=== PATIENT | female | born 1995 | race Caucasian/White ===

== ENCOUNTER 2020-06-03 13:33 | Outpatient (CLI) | payer BC ==
[2020-06-03 14:48] LABS: APPEARANCE,URINE SLIGHTLY-CLOUDY; BILIRUBIN,URINE NEGATIVE (NEGATIVE); COLOR,URINE YELLOW; GLUCOSE, URINE 50 mg/dL (NEGATIVE); KETONES,URINE NEGATIVE (NEGATIVE); LEUKOCYTE ESTERASE,URINE NEGATIVE (NEGATIVE); NITRITE,URINE NEGATIVE (NEGATIVE); PROTEIN,URINE 100 mg/dL (NEGATIVE); URINE SPECIFIC GRAVITY 1.021; UROBILINOGEN,URINE NEGATIVE mg/dL (<2.0)
[2020-06-03 15:05] LABS: URINE AMPHETAMINES SCREEN NEGATIVE; URINE BARBITURATES SCREEN NEGATIVE; URINE BENZODIAZEPINES SCREEN NEGATIVE; URINE COCAINE SCREEN NEGATIVE; URINE MARIJUANA (THC) SCREEN NEGATIVE; URINE METHADONE SCREEN NEGATIVE; URINE PHENCYCLIDINE SCREEN NEGATIVE
[2020-06-03 15:07] LABS: ABSOLUTE EOSINOPHILS # (AUTO) 0.1 10^3/uL (0.0-0.6); ABSOLUTE LYMPHOCYTES (AUTO) 1.5 10^3/uL (0.5-4.7); ABSOLUTE MONOCYTES (AUTO) 0.9 10^3/uL (0.1-1.4); ABSOLUTE NEUT (AUTO) 8.7 10^3/uL (1.7-8.2); BASOPHILS % (AUTO) 0.2 % (0-2); EOSINOPHILS % (AUTO) 0.6 % (0-6); HEMATOCRIT 35.9 % (36.0-47.0); HEMOGLOBIN 12.4 g/dL (12.0-15.5); LYMPHOCYTES % (AUTO) 13.6 % (13-45); MEAN CORPUSCULAR HEMOGLOBIN 29.9 pg (27.0-33.4); MEAN CORPUSCULAR HGB CONC 34.5 g/dL (32.0-36.0); MEAN CORPUSCULAR VOLUME 87 fl (80-97); PLATELET COUNT 135 10^3/uL (150-450); RED BLOOD COUNT 4.15 10^6/uL (3.72-5.28); RED CELL DISTRIBUTION WIDTH 13.7 % (11.5-14.0); SEGMENTED NEUTROPHILS % (AUTO) 77.6 % (42-78); TOTAL CELLS COUNTED % (AUTO) 100 %; WHITE BLOOD COUNT 11.2 10^3/uL (4.0-10.5)
[2020-06-03 15:16] LABS: UR PRO/CREAT RATIO RESULT 0.2 mg/mg (0.0-0.2); URINE CREATININE 129.2 mg/dL (16-327); URINE PROTEIN 22.6 mg/dL (<12)
[2020-06-03 15:29] LABS: ALBUMIN 3.1 g/dL (3.5-5.0); ALKALINE PHOSPHATASE 74 U/L (38-126); ASPARTATE AMINO TRANSFERASE 16 U/L (14-36); BILIRUBIN,TOTAL 0.2 mg/dL (0.2-1.3); BLOOD UREA NITROGEN 11 mg/dL (7-20); CALCIUM 9.1 mg/dL (8.4-10.2); CARBON DIOXIDE 22 mmol/L (22-30); CHLORIDE 107 mmol/L (98-107); GLUCOSE 90 mg/dL (75-110); POTASSIUM 3.9 mmol/L (3.6-5.0); TOTAL PROTEIN 5.9 g/dL (6.3-8.2); URIC ACID 3.7 mg/dL (2.5-6.2)
--- NOTE | 2020-06-03 16:11 | Non Stress Test Report ---
Non Stress Test Datetime Report Generated by CPN: 06/03/2020 16:11 INDICATION Indication for Study (NST) Other: high blood pressure VITAL SIGNS Temperature - NST: 98.4 Pulse - NST: 103 RESP - NST: 16 NBPSYS NST: 123 NBPDIA NST: 59 MONITORING Monitor Explained: Monitor Explained; Patient Verbalized Understanding Time on Monitor: 06/03/2020 13:55 Time off Monitor: 06/03/2020 15:55 NST Duration: 120 NST INTERVENTIONS NST Interventions: None Physician Notified NST: Denisa Da Silva, CNM BABY A: [id number] BABY A Movement : Present Contraction Frequency : none FHR Baseline : 145 Accelerations : 15X15 Decelerations : None Variability : Moderate 6-25bpm NST Review: Meets Criteria for Reactive NST NST Review and Verified By : R Clifford RN NST Results: Reactive NST REPORT Report Trigger: Send Report
[2020-06-03 16:34] LABS: ANION GAP 4 (5-19)
== END 2020-06-03 16:00 | disposition home or self-care (01) ==
LOC: LC 13:33
PROVIDERS: ATTEND Obstetrics & Gynecology
DX: O16.3 Unspecified maternal hypertension, third trimester (principal); Z3A.34 34 weeks gestation of pregnancy; Z02.83 Encounter for blood-alcohol and blood-drug test
CPT/HCPCS: 36415; 80053; 80307; 81001; 82570; 83615; 84156; 84550; 85025

== ENCOUNTER 2020-06-11 09:42 | Outpatient (CLI) | payer BC ==
[2020-06-11 10:43] LABS: APPEARANCE,URINE CLOUDY; BILIRUBIN,URINE NEGATIVE (NEGATIVE); GLUCOSE, URINE NEGATIVE (NEGATIVE); KETONES,URINE NEGATIVE (NEGATIVE); LEUKOCYTE ESTERASE,URINE SMALL (NEGATIVE); NITRITE,URINE NEGATIVE (NEGATIVE); PROTEIN,URINE 100 mg/dL (NEGATIVE); URINE SPECIFIC GRAVITY 1.025; UROBILINOGEN,URINE NEGATIVE mg/dL (<2.0)
[2020-06-11 10:44] LABS: ABSOLUTE EOSINOPHILS # (AUTO) 0.1 10^3/uL (0.0-0.6); ABSOLUTE LYMPHOCYTES (AUTO) 1.3 10^3/uL (0.5-4.7); ABSOLUTE MONOCYTES (AUTO) 0.8 10^3/uL (0.1-1.4); ABSOLUTE NEUT (AUTO) 8.9 10^3/uL (1.7-8.2); EOSINOPHILS % (AUTO) 0.7 % (0-6); HEMATOCRIT 37.9 % (36.0-47.0); HEMOGLOBIN 12.9 g/dL (12.0-15.5); LYMPHOCYTES % (AUTO) 11.7 % (13-45); MEAN CORPUSCULAR HEMOGLOBIN 29.6 pg (27.0-33.4); MEAN CORPUSCULAR HGB CONC 34.1 g/dL (32.0-36.0); MEAN CORPUSCULAR VOLUME 87 fl (80-97); MONOCYTES % (AUTO) 7.3 % (3-13); PLATELET COUNT 117 10^3/uL (150-450); RED BLOOD COUNT 4.36 10^6/uL (3.72-5.28); RED CELL DISTRIBUTION WIDTH 13.6 % (11.5-14.0); SEGMENTED NEUTROPHILS % (AUTO) 80.3 % (42-78); TOTAL CELLS COUNTED % (AUTO) 100 %; WHITE BLOOD COUNT 11.1 10^3/uL (4.0-10.5)
[2020-06-11 10:52] LABS: COLOR,URINE YELLOW
[2020-06-11 11:08] LABS: URINE AMPHETAMINES SCREEN NEGATIVE; URINE BARBITURATES SCREEN NEGATIVE; URINE BENZODIAZEPINES SCREEN NEGATIVE; URINE COCAINE SCREEN NEGATIVE; URINE MARIJUANA (THC) SCREEN NEGATIVE; URINE METHADONE SCREEN NEGATIVE; URINE PHENCYCLIDINE SCREEN NEGATIVE
[2020-06-11 11:10] LABS: ALKALINE PHOSPHATASE 77 U/L (38-126); ANION GAP 6 (5-19); ASPARTATE AMINO TRANSFERASE 19 U/L (14-36); BILIRUBIN,TOTAL 0.3 mg/dL (0.2-1.3); BLOOD UREA NITROGEN 15 mg/dL (7-20); CALCIUM 9.6 mg/dL (8.4-10.2); CARBON DIOXIDE 20 mmol/L (22-30); CHLORIDE 105 mmol/L (98-107); GLUCOSE 102 mg/dL (75-110); POTASSIUM 4.3 mmol/L (3.6-5.0); TOTAL PROTEIN 5.8 g/dL (6.3-8.2); URIC ACID 5.1 mg/dL (2.5-6.2)
[2020-06-11 12:22] LABS: UR PRO/CREAT RATIO RESULT 0.1 mg/mg (0.0-0.2); URINE CREATININE 259.9 mg/dL (16-327); URINE PROTEIN 38.1 mg/dL (<12)
--- NOTE | 2020-06-11 12:41 | Non Stress Test Report ---
Non Stress Test Datetime Report Generated by CPN: 06/11/2020 12:40 DEMOGRAPHIC Test Number: 1 EGA NST: 35.2 INDICATION Indication for Study (NST) Other: pre e w/u VITAL SIGNS Temperature - NST: 98.1 Pulse - NST: 83 RESP - NST: 18 NBPSYS NST: 132 NBPDIA NST: 80 MONITORING Monitor Explained: Monitor Explained; Test Explained; Patient Verbalized Understanding Time on Monitor: 06/11/2020 09:55 Time off Monitor: 06/11/2020 10:15 NST Duration: 20 NST INTERVENTIONS NST Interventions: PO Hydration; Reposition Patient Physician Notified NST: cvalencia,cnm BABY A: [id number] BABY A Movement : Present Contraction Frequency : irregular FHR Baseline : 150 Accelerations : 15X15 Decelerations : None Variability : Moderate 6-25bpm NST Review: Meets Criteria for Reactive NST NST Review and Verified By : ROSIBEL Balbuena Results: Reactive NST REPORT Report Trigger: Send Report
== END 2020-06-11 12:42 | disposition home or self-care (01) ==
LOC: LC 09:42
PROVIDERS: ATTEND Obstetrics & Gynecology
DX: Z02.83 Encounter for blood-alcohol and blood-drug test (principal); O16.3 Unspecified maternal hypertension, third trimester; Z3A.35 35 weeks gestation of pregnancy
CPT/HCPCS: 36415; 59025; 80053; 80307; 81001; 82570; 83615; 84156; 84550; 85025

== ENCOUNTER 2020-06-12 13:58 | Inpatient (IN) | payer BC ==
[2020-06-12] MEDS ORDERED: NIFEDIPINE 10 MG CAPSULE SL ONE (14:22)
[2020-06-12] MEDS ORDERED: RINGERS SOLUTION,LACTATED 1,000 ML IV ONE (14:22)
[2020-06-12] MEDS ORDERED: NIFEDIPINE 10 MG CAPSULE ONE (14:24)
[2020-06-12 14:39] LABS: ABSOLUTE EOSINOPHILS # (AUTO) 0.1 10^3/uL (0.0-0.6); ABSOLUTE LYMPHOCYTES (AUTO) 1.5 10^3/uL (0.5-4.7); ABSOLUTE MONOCYTES (AUTO) 0.9 10^3/uL (0.1-1.4); ABSOLUTE NEUT (AUTO) 9.8 10^3/uL (1.7-8.2); BASOPHILS % (AUTO) 0.1 % (0-2); EOSINOPHILS % (AUTO) 0.5 % (0-6); HEMOGLOBIN 13.1 g/dL (12.0-15.5); LYMPHOCYTES % (AUTO) 12.3 % (13-45); MEAN CORPUSCULAR HEMOGLOBIN 29.4 pg (27.0-33.4); MEAN CORPUSCULAR HGB CONC 33.7 g/dL (32.0-36.0); MEAN CORPUSCULAR VOLUME 87 fl (80-97); MONOCYTES % (AUTO) 7.3 % (3-13); PLATELET COUNT 138 10^3/uL (150-450); RED BLOOD COUNT 4.47 10^6/uL (3.72-5.28); RED CELL DISTRIBUTION WIDTH 13.7 % (11.5-14.0); SEGMENTED NEUTROPHILS % (AUTO) 79.8 % (42-78); TOTAL CELLS COUNTED % (AUTO) 100 %; WHITE BLOOD COUNT 12.2 10^3/uL (4.0-10.5)
[2020-06-12] MEDS ORDERED: BETAMET ACET/BETAMET NA INJ 6 MG/1 ML IM ONE (14:45)
[2020-06-12] MEDS ORDERED: ACETAMINOPHEN 1,000 MG/100 ML RTUPB IV ONE (14:46)
[2020-06-12 14:54] LABS: ALBUMIN 3.2 g/dL (3.5-5.0); ALKALINE PHOSPHATASE 86 U/L (38-126); ANION GAP 6 (5-19); ASPARTATE AMINO TRANSFERASE 18 U/L (14-36); BILIRUBIN,TOTAL 0.2 mg/dL (0.2-1.3); BLOOD UREA NITROGEN 15 mg/dL (7-20); CALCIUM 9.6 mg/dL (8.4-10.2); CARBON DIOXIDE 18 mmol/L (22-30); CHLORIDE 107 mmol/L (98-107); GLUCOSE 81 mg/dL (75-110); POTASSIUM 4.6 mmol/L (3.6-5.0); URIC ACID 4.6 mg/dL (2.5-6.2)
[2020-06-12] MEDS ORDERED: ACETAMINOPHEN 1,000 MG/100 ML RTUPB IV SCH (15:00)
[2020-06-12 15:04] LABS: URINE AMPHETAMINES SCREEN NEGATIVE; URINE BARBITURATES SCREEN NEGATIVE; URINE BENZODIAZEPINES SCREEN NEGATIVE; URINE COCAINE SCREEN NEGATIVE; URINE MARIJUANA (THC) SCREEN NEGATIVE; URINE METHADONE SCREEN NEGATIVE; URINE PHENCYCLIDINE SCREEN NEGATIVE
[2020-06-12] MEDS ORDERED: BETAMET ACET/BETAMET NA INJ 6 MG/1 ML ONE (15:12)
[2020-06-12 16:45] LABS: UR PRO/CREAT RATIO RESULT 1.3 mg/mg (0.0-0.2); URINE CREATININE 97.4 mg/dL (16-327); URINE PROTEIN 123.6 mg/dL (<12)
--- NOTE | 2020-06-12 17:23 | Admission Physical ---
Datetime Report Generated by CPN: 06/12/2020 17:22 CURRENT ADMISSION Chief Complaint: Signs/Symptoms Gestational HTN Indication for Induction: Other Indication for Induction- Other: preeclampsia Admit Impression : Induction of Labor Admit Plan: Admit to Unit ALLERGIES Medication Allergies: No Medication Allergies: No Known Allergies (06/12/2020) Latex: No Latex Allergies Food Allergies: none Environmental Allergies: none OBSTETRICAL HISTORY EDC: 07/14/2020 00:00 : 1 Para: 0 Term: 0 : 0 SAB: 0 IAB: 0 Livin PHYSICAL EXAM General: Normal HEENT: Normal Neurologic: Normal Thyroid: Normal Heart: Normal Lungs: Normal Breast: Deferred Back: Normal Abdomen: Normal Genitourinary Exam: Normal Extremities: Normal DTRs: Normal Pelvic Type: Adequate Vital Signs: Reviewed MEMBRANES Pooling: Negative Membranes: Intact FETUS A EGA: 35.3 FHR- Baseline: 140 Variability: Moderate 6-25bpm Decelerations: None FHR Category: Category I Admit Comment: Discussed with Dr Melgar. Plan steroids and induction for preeclampsia. INFORMED CONSENT Signature: with User ID: [email or web address]
[2020-06-12] MEDS ORDERED: OXYTOCIN/0.9 % SODIUM CHLORIDE 30 UNIT/500 ML RTUINJ IV PRN (17:35)
[2020-06-12] MEDS ORDERED: MAG HYDROX/AL HYDROX/SIMETH SUSP 30 ML UDCUP PO PRN ×2 (17:35→18:10)
[2020-06-12] MEDS ORDERED: DINOPROSTONE 10 MG VAGINAL INSERT.SR PV ONE ×2 (17:35→18:10)
[2020-06-12] MEDS ORDERED: ACETAMINOPHEN 325 MG TABLET PO PRN ×2 (17:35→18:10)
[2020-06-12] MEDS ORDERED: ZOLPIDEM TARTRATE 5 MG TABLET PO PRN ×2 (17:35→18:10)
[2020-06-12] MEDS ORDERED: RINGERS SOLUTION,LACTATED 300 ML IV ONE ×2 (17:35→18:10)
[2020-06-12] MEDS ORDERED: RINGERS SOLUTION,LACTATED 1,000 ML IV PRN (18:10)
[2020-06-12] MEDS ORDERED: DINOPROSTONE 10 MG VAGINAL INSERT.SR ONE (18:23)
[2020-06-12 20:26] LABS: CHLAM PCR NOT DETECTED (NOT DETECT)
[2020-06-12] MEDS: RINGERS SOLUTION,LACTATED 1,000 ML IV PRN (22:40)
[2020-06-13] MEDS ORDERED: OXYTOCIN 10 UNIT/ML VIAL ONE (08:18)
[2020-06-13] MEDS ORDERED: LIDOCAINE 1% INJ-PF (10 MG/ML) 30 ML SDV ONE (08:19)
[2020-06-13] MEDS ORDERED: MISOPROSTOL 0.2 MG TABLET ONE (08:19)
[2020-06-13] MEDS ORDERED: OXYTOCIN/0.9 % SODIUM CHLORIDE 30 UNIT/500 ML RTUINJ ONE (08:19)
[2020-06-13 09:25] LABS: ABSOLUTE LYMPHOCYTES (AUTO) 1.6 10^3/uL (0.5-4.7); ABSOLUTE MONOCYTES (AUTO) 0.8 10^3/uL (0.1-1.4); ABSOLUTE NEUT (AUTO) 13.1 10^3/uL (1.7-8.2); BASOPHILS % (AUTO) 0.2 % (0-2); HEMATOCRIT 37.4 % (36.0-47.0); HEMOGLOBIN 12.7 g/dL (12.0-15.5); LYMPHOCYTES % (AUTO) 10.4 % (13-45); MEAN CORPUSCULAR HEMOGLOBIN 29.7 pg (27.0-33.4); MEAN CORPUSCULAR VOLUME 87 fl (80-97); MONOCYTES % (AUTO) 5.1 % (3-13); PLATELET COUNT 140 10^3/uL (150-450); RED BLOOD COUNT 4.29 10^6/uL (3.72-5.28); RED CELL DISTRIBUTION WIDTH 13.8 % (11.5-14.0); SEGMENTED NEUTROPHILS % (AUTO) 84.3 % (42-78); TOTAL CELLS COUNTED % (AUTO) 100 %; WHITE BLOOD COUNT 15.5 10^3/uL (4.0-10.5)
[2020-06-13] MEDS ORDERED: PENICILLIN G POTASSIUM 5,000,000 UNIT in DEXTROSE 5%-WATER 100 ML IV ONE (09:34)
[2020-06-13] MEDS ORDERED: PENICILLIN G-K 5 MILLION UNIT VIAL ONE (09:42)
--- NOTE | 2020-06-13 09:42 | L&D Progress Notes ---
PROGRESS NOTES Datetime Report Generated by CPN: 06/13/2020 09:42 PROGRESS NOTE Impression: Normal Progression of Labor Procedures: Sterile Vag Exam Plan: Continue Present Management; Induction Informed Consent Obtained: Vaginal Delivery; Induction of Labor; Risks, Benefits and Alternatives Discussed Comment: s/p cervidil. 2/50/hi. PCN started for GBS unknown. Pitocin started and cooks catheter placed. LAST VAGINAL EXAM-NURSING Nursing Exam Dilitation: 2.0 Nursing Exam Effacement: 50 Nursing Exam Station: high Nursing Exam Contractions: irritability noted MEMBRANES Pooling: Negative Membranes: Intact FETUS A : 35.0 SIGNATURE SIGNATURE: [id number];[id number];[id number] Signature: with User ID: [email or web address]
[2020-06-13] MEDS: RINGERS SOLUTION,LACTATED 1,000 ML IV PRN (09:52)
[2020-06-13] MEDS ORDERED: PENICILLIN G POTASSIUM 2,500,000 UNIT in DEXTROSE 5%-WATER 50 ML IV SCH ×2 (13:35→17:35)
[2020-06-13] MEDS ORDERED: BETAMET ACET/BETAMET NA INJ 6 MG/1 ML IM ONE (14:24)
[2020-06-13] MEDS ORDERED: BETAMET ACET/BETAMET NA INJ 6 MG/1 ML ONE (14:40)
[2020-06-13] MEDS ORDERED: EPHEDRINE SULFATE INJ 50 MG/1 ML AMPULE ONE (15:14)
[2020-06-13] MEDS ORDERED: FENTANYL/BUPIVACAINE/NS/PF 300 MCG/150 ML RTUINJ EPI ONE (15:15)
[2020-06-13] MEDS ORDERED: ROPIVACAINE HCL 0.2% INJ/PF (2 MG/ML) 20 ML SDV ONE (15:15)
[2020-06-13] MEDS ORDERED: GLYCERIN/WITCH HAZEL LEAF 1 EACH MED..WIPE TP PRN (17:44)
[2020-06-13] MEDS ORDERED: PROMETHAZINE HCL 25 MG TABLET PO PRN (17:44)
[2020-06-13] MEDS ORDERED: BENZOCAINE/MENTHOL AEROSOL SPRAY 56 ML TOP PRN (17:44)
[2020-06-13] MEDS ORDERED: PROMETHAZINE HCL 25 MG SUPP.RECT PR PRN (17:44)
[2020-06-13] MEDS ORDERED: PSEUDOEPHEDRINE HCL 30 MG TABLET PO PRN (17:44)
[2020-06-13] MEDS ORDERED: DIPH/PERTUSS(ACELL)/TETANUS VAC/PF 0.5 ML SYR (>=10YO) IM PRN (17:44)
[2020-06-13] MEDS ORDERED: DIPHENHYDRAMINE HCL 25 MG CAPSULE PO PRN (17:44)
[2020-06-13] MEDS ORDERED: NA PHOS,M-B/NA PHOS,DI-BA (ADULT) 133 ML ENEMA PR PRN (17:44)
[2020-06-13] MEDS ORDERED: ZOLPIDEM TARTRATE 5 MG TABLET PO PRN (17:44)
[2020-06-13] MEDS ORDERED: OXYTOCIN/0.9 % SODIUM CHLORIDE 30 UNIT/500 ML RTUINJ IV PRN (17:44)
[2020-06-13] MEDS ORDERED: PROMETHAZINE HCL INJ 25 MG/1 ML VIAL IV PRN (17:44)
[2020-06-13] MEDS ORDERED: MEASLES,MUMPS&RUBELLA VACC/PF 0.5 ML VIAL SUBCUT PRN (17:44)
[2020-06-13] MEDS ORDERED: ACETAMINOPHEN 650 MG SUPP.RECT PR PRN (17:44)
[2020-06-13] MEDS ORDERED: MAGNESIUM HYDROXIDE SUSP 30 ML UDCUP PO PRN (17:44)
[2020-06-13] MEDS ORDERED: ACETAMINOPHEN WITH CODEINE #3 TABLET PO PRN ×2 (17:44)
[2020-06-13] MEDS ORDERED: DIBUCAINE 1% OINTMENT 28 GM TP PRN (17:44)
[2020-06-13] MEDS ORDERED: DOCUSATE SODIUM 100 MG CAPSULE PO SCH (18:00)
[2020-06-13] MEDS ORDERED: FERROUS SULFATE 325 MG TABLET PO SCH (18:00)
[2020-06-13] MEDS ORDERED: MAGNESIUM SULFATE 4 GM/100 ML RTUPB IV ONE ×2 (19:00→19:09)
[2020-06-13] MEDS ORDERED: MISOPROSTOL 0.2 MG TABLET PR ONE (19:00)
[2020-06-13] MEDS ORDERED: MAGNESIUM SULFATE 20 GM/500 ML RTUINJ IV ONE (19:09)
[2020-06-13] MEDS: MAGNESIUM SULFATE 20 GM/500 ML RTUINJ IV PRN (20:31)
[2020-06-13] MEDS ORDERED: ACETAMINOPHEN 325 MG TABLET ONE (21:18)
[2020-06-13] MEDS: PIPERACILLIN SODIUM/TAZOBACTAM 3.375 GM in NORMAL SALINE 100 ML IV SCH (21:29)
[2020-06-13] MEDS ORDERED: ACETAMINOPHEN 325 MG TABLET PO ONE (21:47)
[2020-06-13] MEDS ORDERED: IBUPROFEN 800 MG TABLET ONE (22:02)
[2020-06-13] MEDS ORDERED: FAMOTIDINE 20 MG TABLET ONE (22:02)
[2020-06-13] MEDS: IBUPROFEN 800 MG TABLET PO SCH (22:14)
[2020-06-13] MEDS: FAMOTIDINE 20 MG TABLET PO SCH (22:14)
[2020-06-14] MEDS ORDERED: PIPERACILLIN SODIUM/TAZOBACTAM 3.375 GM in NORMAL SALINE 100 ML IV SCH ×2
[2020-06-14] MEDS ORDERED: PIPERACILLIN/TAZOBACTAM 3.375 GM VIAL IV SCH
[2020-06-14] MEDS: PIPERACILLIN SODIUM/TAZOBACTAM 3.375 GM in NORMAL SALINE 100 ML IV SCH ×4 (03:42→21:10)
--- NOTE | 2020-06-14 04:42 | Delivery Summary ---
Del Sum A-C Datetime Report Generated by CPN: 06/14/2020 04:41 DELIVERY PERSONNEL DELIVERY PERSONNEL: [id number] Delivery Doctor:: Alexandra Melgar MD Labor and Delivery Nurse:: GENIE Griffith Nursery Nurse:: Faina Snyder RN Group Controller/PATHOLOGY TECH: Jessa Quinteros, ST MATERNAL INFORMATION Delivery Anesthesia: Epidural Provider Comments: VMI delivered in REBECCA presentation with left compound arm/elbow. Shoulders and body delivered without difficulty. Cord doubly clamped and cut and to maternal abdomen for NRP then to Nursery. Placenta delivered intact spontaneously. FF at U. 2nd degree perineal laceration and left vaginal sidewall laceration repaired. 1000mcg cytotec given NM. good hemostasis. Mother and baby stable upon provider leaving the room. LABOR SUMMARY EDC: 07/14/2020 00:00 No. Babies in Womb: 1 Labor Anesthesia: Epidural LABOR INFORMATION Onset of Labor: 06/13/2020 14:30 Complete Dilatation: 06/13/2020 17:16 Cervical Ripening Agents: Cervidil Other Ripening Agents: cervidil Oxytocin: Induction Group B Beta Strep: unknown Antibiotics # of Doses: 2 Antibiotics Time of Last Dose: 1345 Name of Antibiotic Given: PCN Steroids Given: Full Course; < 24 Hours before Delivery MEMBRANES Membranes Rupture Method: Artificial Rupture of Membranes: 06/13/2020 14:55 Length of Rupture (hr): 2.70 Amniotic Fluid Color: Clear Amniotic Fluid Amount: Large Amniotic Fluid Odor: Normal STAGES OF LABOR Stage 1 hr: 2 Stage 1 min: 46 Stage 2 hr: 0 Stage 2 min: 21 Stage 3 hr: 0 Stage 3 min: 6 Total Time in Labor hr: 3 Total Time in Labor min: 13 VAGINAL DELIVERY Episiotomy: None Laceration #1: Vaginal Laceration Extension #1: Second Degree Laceration #2: Vaginal Laceration Extension #2: N/A Laceration Repair: Yes Sponge Count Correct: Yes Sharps Count Correct: Yes BABY A INFORMATION Infant Delivery Date/Time: 06/13/2020 17:37 Method of Delivery: Vaginal Nurse Controlled Delivery: No Born in Route : No : N/A Forceps: N/A Vacuum Extraction: N/A Shoulder Dystocia : No PRESENTATION/POSITION BABY A Presentation: Cephalic Cephalic Presentation: Vertex Vertex Position: Left Occipital Anterior Breech Presentation: N/A PLACENTA INFORMATION BABY A Placenta Delivery Time : 06/13/2020 17:43 Placenta Method of Delivery: Spontaneous SCORES BABY A Heart Rate 1 min: >100 bpm Resp Effort 1 min: Good Cry Reflex Irritability 1 min: Cough or Sneeze or Pulls Away Muscle Tone 1 min: Some Flexion of Extremities Color 1 min: Body Ringling, Extremities Blue Resuscitation Effort 1 min: Tactile Stimulation SCORE 1 MIN: 8 Heart Rate 5 min: >100 bpm Resp Effort 5 min: Good Cry Reflex Irritability 5 min: Cough or Sneeze or Pulls Away Muscle Tone 5 min: Active Motion Color 5 min: Body Ringling, Extremities Blue Resuscitation Effort 5 min: Tactile Stimulation SCORE 5 MIN: 9 INFANT INFORMATION BABY A Gestational Age at Delivery: 35.4 Gestational Status: Late - 34- 36.6 Weeks Infant Outcome : Liveborn Infant Condition : Stable Infant Sex: Male IDENTIFICATION BABY A Verification Date/Time: 06/13/2020 17:37 ID Band Number: [id number] Mother's Name Verified: Yes RN Verifying Infant: [email or web address] Additional Verifying Personnel: S Quinteros WEIGHT/LENGTH BABY A Infant Birthweight (gm): 3023 Infant Weight (lb): 6 Infant Weight (oz): 11 Infant Length (in): 20.00 Length (cm): 50.80 CORD INFORMATION BABY A No. Cord Vessels: 3 Nuchal Cord : N/A Cord Blood Taken: Yes-For Storage (Mom's Blood type +) ASSESSMENT BABY A Infant Complications: Decreased Variability Physical Findings at Delivery: Within Normal Limits Infant Respirations: Appears Normal Skin to Skin: Yes (Annotations: 6 min then baby became apneic) Maintenance Department Technician/ALS Called : No Care By: Marimar Brennerr Transferred To: Nursery SIGNATURES Signature: with User ID: [email or web address]
--- NOTE | 2020-06-14 04:42 | Birth Certificate Data ---
Cert Data Datetime Report Generated by CPN: 06/14/2020 04:41 CERTIFICATE DATA 47a. Care: Yes (06/03/2020 13:56:Dolores Ennis RN) 47b. Date of First Visit: 01/04/2020 00:00 (06/03/2020 13:56:Dolores Ennis RN) 47c. Date of Last Visit: 06/12/2020 00:00 (06/03/2020 13:56:Dolores Ennis RN) 47d. Number of Visits: 12 (06/03/2020 13:56:Dolores Ennis RN) 48a. Number of Prev Live Births: 0 (06/03/2020 13:56:Dolores Ennis RN) 48b. Now Livin (06/03/2020 13:56:Doron German RN) 48c. Live Births Now : 0 (06/03/2020 13:56:QS system process) 48e. Losses: 0 (06/03/2020 13:56:Dolores Ennis RN) RISK FACTORS IN THIS 49a. Diabetes: Yes (06/03/2020 13:56:GENIE Andino) Type of Diabetes: Gestational Diabetes (06/03/2020 13:56:GENIE Andino) 49b. Hypertension: Yes (06/03/2020 13:56:GENIE Andino) Type of Hypertension: Gestational (PIH, Pre-eclampsia) (06/03/2020 13:56:GENIE Andino) 49c. Previous Births: 0 (06/03/2020 13:56:Doron German RN) Stillborns: No (06/03/2020 13:56:Dolores Ennis RN) IUGR: No (06/03/2020 13:56:Dolores Ennis RN) 49e. Infertility Treatment: No (06/03/2020 13:56:Dolores Ennis RN) 49f. Previous Cesareans: 0 (06/03/2020 13:56:Dolores Ennis RN) Mother's Height 50b. Height Inches: 62 (06/13/2020 18:25:QS system process) Mother's Weight 51b. Weight at Time of Delivery: 240 (06/13/2020 18:25:QS system process) 52. Dt Last Normal Menses Began: 10/08/2019 00:00 (06/03/2020 13:56:Dolores Ennis RN) Infections Present/Treated 53a. Gonorrhea: No (06/03/2020 13:56:Dolores Ennis RN) Results this Hospital Visit : Negative (06/03/2020 13:56:Ashli Pavon RN) 53b. Syphilis: No (06/03/2020 13:56:Dolores Ennis RN) Results this Hospital Visit: NONREACTIVE (06/12/2020 14:29:QS system process) 53c. Chlamydia: No (06/03/2020 13:56:Dolores Ennis RN) Results this Hospital Visit: Negative (06/03/2020 13:56:Ashli Pavon RN) 53d. Hepatitis B: No (06/03/2020 13:56:Dolores Ennis RN) Results this Hospital Visit: Negative (06/03/2020 13:56:Dolores Ennis RN) 53e. Hepatitis C: Negative (06/03/2020 13:56:Andressa Turpin RN) 53i. Date Tested: 12/31/2019 00:00 (06/03/2020 13:56:Andressa Turpin RN) Obstetric Procedures 54a, b, c. Obstetric Procedures: Ultrasound; NST (06/03/2020 13:56:Dolores Ennis RN) Cigarette Smoking 55a. 3 Months Before Preg - Ci (06/03/2020 13:56:Dolores Ennis RN) 55a. Packs: 0 (06/03/2020 13:56:Dolores Ennis RN) 55b. 1st Trimester of Preg- Ci (06/03/2020 13:56:Dolores Ennis RN) 55b. Packs: 0 (06/03/2020 13:56:Dolores Ennis RN) 55c. 2nd Trimester of Preg- Ci (06/03/2020 13:56:Dolores Ennis RN) 55c. Packs: 0 (06/03/2020 13:56:Dolores Ennis RN) 55d. 3rd Trimester of Preg- Ci (06/03/2020 13:56:Dolores Ennis RN) 55d. Packs: 0 (06/03/2020 13:56:Dolores Ennis RN) Onset of Labor 56a. PROM >12 Hrs: 2.70 (06/03/2020 13:56:QS system process) 56b. Precipitous Labor <3 Hrs: 3 (06/03/2020 13:56:QS system process) 56c. Prolonged Labor > 20 Hrs: 3 (06/03/2020 13:56:QS system process) 57a. Induction of Labor: Induction (06/03/2020 13:56:Andressa Turpin RN) 57a. Induction of Labor: Cervidil (06/12/2020 18:28:Dolores Ennis RN) 57a. Induction of Labor: cervidil (06/03/2020 13:56:Andressa Turpin RN) 57c. Non-Vertex Presentation A: Vertex (06/03/2020 13:56:Andressa Turpin RN) 57d. Steroids - Lung Mat: Full Course; < 24 Hours before Delivery (06/03/2020 13:56:Alexandra Melgar MD ([facility])) 57d. Steroids - Lung Mat: Celestone 12mg IM - Dose 1 (06/12/2020 15:14:Andressa Turpin RN) 57e. Antibiotics During Labor: 1345 (06/03/2020 13:56:Andressa Turpin RN) 57g. Moderate/Heavy Meconium: Clear (06/13/2020 14:55:Andressa Turpin RN) 57i. Epidural/Spinal Anesthesia: Epidural (06/03/2020 13:56:Andressa Turpin RN) Method of Delivery 58a. Forceps - Unsuccessful A: N/A (06/03/2020 13:56:Andressa Turpin RN) 58b. Vacuum - Unsuccessful A: N/A (06/03/2020 13:56:Andressa Turpin RN) 58c. Presentation at 58c. Presentation at - A : Vertex (06/03/2020 13:56:Andressa Turpin RN) 58c. Presentation at - A : N/A (06/03/2020 13:56:Andressa Turpin RN) 58c. Presentation at - A : Cephalic (06/03/2020 13:56:Andressa Turpin RN) Final Route and Method of Del 58d. Baby A Route/Delivery: Vaginal (06/03/2020 13:56:Andressa Turpin RN) 58e. Trial of Labor Attempted A: N/A (06/03/2020 13:56:Andressa Turpin RN) Maternal Morbidity 59b. 3rd or 4th Degree Lacs: Vaginal (06/03/2020 13:56:Andressa Turpin RN) Birthweight Baby A: 3023 (06/03/2020 13:56:Andressa Turpin RN) 60a. Pounds : 6 (06/03/2020 13:56:QS system process) 60b. Ounces: 11 (06/03/2020 13:56:QS system process) 61. GA at Delivery Baby A: 35.4 (06/03/2020 13:56:Andressa Turpin RN) : Late - 34- 36.6 Weeks (06/03/2020 13:56:QS system process) 62a. 5 Minute Baby A: 9 (06/03/2020 13:56:QS system process)
[2020-06-14] MEDS ORDERED: IBUPROFEN 800 MG TABLET ONE ×2 (06:16→21:41)
[2020-06-14] MEDS: IBUPROFEN 800 MG TABLET PO SCH ×3 (06:18→22:20)
[2020-06-14] MEDS ORDERED: MAGNESIUM SULFATE 20 GM/500 ML RTUINJ IV ONE ×2 (06:54→18:21)
[2020-06-14] MEDS: MAGNESIUM SULFATE 20 GM/500 ML RTUINJ IV PRN ×3 (06:57→18:30)
[2020-06-14 07:21] LABS: HEMATOCRIT 37.8 % (36.0-47.0); HEMOGLOBIN 12.7 g/dL (12.0-15.5); MEAN CORPUSCULAR HEMOGLOBIN 29.4 pg (27.0-33.4); MEAN CORPUSCULAR HGB CONC 33.6 g/dL (32.0-36.0); MEAN CORPUSCULAR VOLUME 88 fl (80-97); PLATELET COUNT 155 10^3/uL (150-450); RED BLOOD COUNT 4.31 10^6/uL (3.72-5.28); RED CELL DISTRIBUTION WIDTH 14.1 % (11.5-14.0); WHITE BLOOD COUNT 20.9 10^3/uL (4.0-10.5)
[2020-06-14] MEDS ORDERED: SENNOSIDES/DOCUSATE 8.6-50 MG 1 EACH TABLET PO SCH (10:00)
[2020-06-14] MEDS ORDERED: PRENATAL VITAMIN W DHA CAPSULE PO SCH (10:00)
--- NOTE | 2020-06-14 15:20 | PDOC PROGRESS REPORT ---
Subjective-OB Progress Note for:: 06/14/20 Physical Exam (OB) Vital Signs: Temp Pulse Resp BP Pulse Ox 99.8 F 06/13/20 22:16 Intake & Output 06/13/20 06/14/20 06/15/20 06:59 06:59 06:59 Intake Total 1100 700 100 Balance 1100 700 100 Weight 108.8 kg - General General Appearance: Appears well - Maternal Morbidity 59. Maternal Morbidity (serious complications experinced by the mother associated with labor and delivery: None of the above Objective-Diagnostic Laboratory: 06/14/20 06:52 06/12/20 14:29 06/14/20 06:52 WBC 20.9 H RBC 4.31 Hgb 12.7 Hct 37.8 MCV 88 MCH 29.4 MCHC 33.6 RDW 14.1 H Plt Count 155 Assessment and Plan(PN) - Time Spent with Patient Time with patient: Less than 15 minutes - Disposition Anticipated Discharge Disposition: Home, Self Care Anticipated Discharge Timeframe: within 48 hours
[2020-06-14] MEDS ORDERED: NIFEDIPINE 10 MG CAPSULE ONE (21:34)
[2020-06-14] MEDS ORDERED: FAMOTIDINE 20 MG TABLET ONE (21:41)
[2020-06-14] MEDS: FAMOTIDINE 20 MG TABLET PO SCH ×2 (22:19→22:20)
[2020-06-15] MEDS: NIFEDIPINE 10 MG CAPSULE PO SCH ×2 (06:05→06:07)
[2020-06-15] MEDS ORDERED: NIFEDIPINE 10 MG CAPSULE ONE (06:06)
[2020-06-15] MEDS ORDERED: IBUPROFEN 800 MG TABLET ONE (06:06)
[2020-06-15] MEDS: IBUPROFEN 800 MG TABLET PO SCH (06:07)
--- NOTE | 2020-06-15 07:00 | PDOC DISCHARGE SUMMARY ---
Impression - Admit/DC Date/PCP Admission Date/Primary Care Provider: 06/12/20 17:32 NO LOCALMD Discharge Date: 06/15/20 - Discharge Diagnosis (1) Chronic hypertension with superimposed preeclampsia Is this a current diagnosis for this admission?: Yes (2) Obstetrical high vaginal laceration, delivered Is this a current diagnosis for this admission?: Yes (3) Vaginal delivery Is this a current diagnosis for this admission?: Yes - Additional Information Resuscitation Status: Full Code Discharge Diet: As Tolerated Discharge Activity: Activity As Tolerated, Balance Activity w/Rest, Pelvic Rest, Slowly Increase Activity, No tub bath, Walk Frequently Referrals: LOCALMD,NO [Primary Care Provider] - Home Medications: Glyburide [Diabeta 2.5 Mg Tablet] 7.5 mg PO DAILY 06/03/20 Prenat 115/Iron Fum/Folic/Dss [ 19 Tablet] 1 mg PO DAILY 06/03/20 History of Present Illiness History of Present Illness: CONCEPCION CONLEY is a 25 year old female post Hospital Course Hospital Course: pt is s/p delivery and 24 hours of mag smg doimh well Physical Exam - Physical Exam Vital Signs: Temp Pulse Resp BP Pulse Ox 99.8 F 06/13/20 22:16 Intake & Output 06/13/20 06/14/20 06/15/20 06:59 06:59 06:59 Intake Total 1100 700 706 Balance 1100 700 706 Weight 108.8 kg General appearance: PRESENT: no acute distress Respiratory exam: PRESENT: clear to auscultation torres Cardiovascular exam: PRESENT: RRR Results Laboratory Results: WBC 20.9 10^3/uL (4.0-10.5) H 06/14/20 06:52 RBC 4.31 10^6/uL (3.72-5.28) 06/14/20 06:52 Hgb 12.7 g/dL (12.0-15.5) 06/14/20 06:52 Hct 37.8 % (36.0-47.0) 06/14/20 06:52 MCV 88 fl (80-97) 06/14/20 06:52 MCH 29.4 pg (27.0-33.4) 06/14/20 06:52 MCHC 33.6 g/dL (32.0-36.0) 06/14/20 06:52 RDW 14.1 % (11.5-14.0) H 06/14/20 06:52 Plt Count 155 10^3/uL (150-450) 06/14/20 06:52 Lymph % (Auto) 10.4 % (13-45) L 06/13/20 08:55 Riley % (Auto) 5.1 % (3-13) 06/13/20 08:55 Eos % (Auto) 0.0 % (0-6) 06/13/20 08:55 Baso % (Auto) 0.2 % (0-2) 06/13/20 08:55 Absolute Neuts (auto) 13.1 10^3/uL (1.7-8.2) H 06/13/20 08:55 Absolute Lymphs (auto) 1.6 10^3/uL (0.5-4.7) 06/13/20 08:55 Absolute Monos (auto) 0.8 10^3/uL (0.1-1.4) 06/13/20 08:55 Absolute Eos (auto) 0.0 10^3/uL (0.0-0.6) 06/13/20 08:55 Absolute Basos (auto) 0.0 10^3/uL (0.0-0.2) 06/13/20 08:55 Seg Neutrophils % 84.3 % (42-78) H 06/13/20 08:55 Sodium 131.1 mmol/L (137-145) L 06/12/20 14:29 Potassium 4.6 mmol/L (3.6-5.0) 06/12/20 14:29 Chloride 107 mmol/L (98-107) 06/12/20 14:29 Carbon Dioxide 18 mmol/L (22-30) L 06/12/20 14:29 Anion Gap 6 (5-19) 06/12/20 14:29 BUN 15 mg/dL (7-20) 06/12/20 14:29 Creatinine 0.57 mg/dL (0.52-1.25) 06/12/20 14:29 Est GFR ( Amer) > 60 (>60) 06/12/20 14:29 Est GFR (MDRD) Non-Af > 60 (>60) 06/12/20 14:29 Glucose 81 mg/dL (75-110) 06/12/20 14:29 POC Glucose 85 mg/dL (70-110) 06/13/20 15:10 Uric Acid 4.6 mg/dL (2.5-6.2) 06/12/20 14:29 Calcium 9.6 mg/dL (8.4-10.2) 06/12/20 14:29 Total Bilirubin 0.2 mg/dL (0.2-1.3) 06/12/20 14:29 Direct Bilirubin 0.0 mg/dL (0.0-0.4) 06/12/20 14:29 Neonat Total Bilirubin Not Reportable 06/12/20 14:29 Neonat Direct Bilirubin Not Reportable 06/12/20 14:29 Neonat Indirect Bili Not Reportable 06/12/20 14:29 AST 18 U/L (14-36) 06/12/20 14:29 ALT 16 U/L (<35) 06/12/20 14:29 Alkaline Phosphatase 86 U/L (38-126) 06/12/20 14:29 Lactate Dehydrogenase 162 U/L (120-246) 06/12/20 14:29 Total Protein 6.0 g/dL (6.3-8.2) L 06/12/20 14:29 Albumin 3.2 g/dL (3.5-5.0) L 06/12/20 14:29 Urine Creatinine 97.4 mg/dL (16-327) 06/12/20 14:15 Protein/Creatinin Ratio 1.3 mg/mg (0.0-0.2) H 06/12/20 14:15 Urine Total Protein 123.6 mg/dL (<12) H 06/12/20 14:15 Urine Opiates Screen NEGATIVE 06/12/20 14:15 Urine Methadone Screen NEGATIVE 06/12/20 14:15 Ur Barbiturates Screen NEGATIVE 06/12/20 14:15 Ur Phencyclidine Scrn NEGATIVE 06/12/20 14:15 Ur Amphetamines Screen NEGATIVE 06/12/20 14:15 U Benzodiazepines Scrn NEGATIVE 06/12/20 14:15 Urine Cocaine Screen NEGATIVE 06/12/20 14:15 U Marijuana (THC) Screen NEGATIVE 06/12/20 14:15 RPR NONREACTIVE (NONREACTIVE) 06/12/20 14:29 Chlamydia DNA (PCR) NOT DETECTED (NOT DETECT) 06/12/20 18:30 N.gonorrhoeae DNA (PCR) NOT DETECTED (NOT DETECT) 06/12/20 18:30 Blood Type A POSITIVE 06/12/20 14:29 Antibody Screen NEGATIVE 06/12/20 14:29 Plan Health Concerns: bp Plan of Treatment: discharge follow up in 1 week Time Spent: Less than 30 Minutes Stroke Is this a Stroke Patient?: No Acute Heart Failure - Is this a Heart Failure Patient?: No
== END 2020-06-15 09:23 | disposition home or self-care (01) | DRG 806 ==
LOC: LC 13:58 → LR 17:32
PROVIDERS: ADMIT Student in an Organized Health Care Education/Training Program; ATTEND Student in an Organized Health Care Education/Training Program
PROC: 10E0XZZ Delivery of Products of Conception, External Approach (ICD-10-PCS; principal; 2020-06-13)
PROC: 0KQM0ZZ Repair Perineum Muscle, Open Approach (ICD-10-PCS; 2020-06-13)
DX: O60.14X0 Preterm labor third trimester with preterm delivery third trimester, not applicable or unspecified (principal); O10.92 Unspecified pre-existing hypertension complicating childbirth; Z37.0 Single live birth; O11.4 Pre-existing hypertension with pre-eclampsia, complicating childbirth; O70.1 Second degree perineal laceration during delivery; O32.6XX0 Maternal care for compound presentation, not applicable or unspecified; O76 Abnormality in fetal heart rate and rhythm complicating labor and delivery; O24.425 Gestational diabetes mellitus in childbirth, controlled by oral hypoglycemic drugs; Z3A.35 35 weeks gestation of pregnancy; Z11.59 Encounter for screening for other viral diseases
CPT/HCPCS: 1967; 36415; 80053; 80307; 82570; 82962; 83615; 84156; 84550; 85025; 85027; 86592; 86850; 86900; 86901; 87077; 87081; 87491; 87591; 87635; 88307; 94760; C1758; C9803; J0131; J0702; J2540; J2543; J2590; J2795; J3010; J3475; J3490; J7050; J7060